=== PATIENT | female | born 1995 | race Caucasian/White ===

== ENCOUNTER 2016-09-04 01:28 | Emergency (ER) | payer OTHER ==
[~2016-09-04 01:28] MED LIST: ALEVE220 M1 PO; ALLERGY MEDICAT25 MG PO; BACTRIM DS TAB1 EACH PO; CEPHALEXIN500 M1 PO; DEPO-PROVER150 MG/M2 IM; MACRODANTIN50 M1 PO; PREDNISONE20 M1 PO; PYRIDIUM200 M2 PO; RT ALBUTEROL I6.8 GM IH; SULFAMETH/TRIME1 TA1 PO; TRIAMCINOLONE A15 GM TP; ZITHROMAX Z PA250 MG PO
[2016-09-04] MEDS ORDERED: KETOROLAC TROME10 MG PO (02:31)
== END 2016-09-04 02:45 | disposition home or self-care (01) ==
LOC: ED 01:28
DX: R07.89 Other chest pain (principal); F17.210 Nicotine dependence, cigarettes, uncomplicated
CPT/HCPCS: J1885

== ENCOUNTER 2017-07-07 09:30 | Emergency (ER) | payer SELFPAY ==
[~2017-07-07 09:30] MED LIST changes: +KETOROLAC TROME10 MG PO
[2017-07-07 10:11] LABS: EOS # 0.2 (0.04-0.40); HEMATOCRIT 38.4 % (37.0-47.0); LYMPH# 2.1 (1.50-4.00); MEAN CELL VOLUME 91 fl (78-100); MEAN CORPUSCULAR HEMOGLOBIN 31 pg (27-31); MEAN CORPUSCULAR HGB CONC 34 g/dL (33-37); MEAN PLATELET VOLUME 11.4 fl (7.4-10.4); MONO # 0.7 (0.20-0.80); NEU # 3.4 (1.40-6.50); PLATELET COUNT 173 K/mm3 (130-400); RED BLOOD COUNT 4.22 M/mm3 (4.10-5.30); RED CELL DISTRIBUTION WIDTH 14.1 % (11.5-14.5); WHITE BLOOD COUNT 6.4 K/mm3 (4.8-10.8)
[2017-07-07 10:26] LABS: URINE APPEARANCE HAZY; URINE BILIRUBIN NEGATIVE (NEGATIVE); URINE BLOOD NEGATIVE (NEGATIVE); URINE COLOR YELLOW; URINE GLUCOSE NEGATIVE (NEGATIVE); URINE KETONE NEGATIVE (NEGATIVE); URINE LEUKOCYTE ESTERASE 2+ (NEGATIVE); URINE MUCUS PRESENT (NOT PRESENT); URINE NITRATE NEGATIVE (NEGATIVE); URINE PROTEIN(semi-quant) NEGATIVE (NEGATIVE); URINE UROBILINOGEN NORMAL (NORMAL)
[2017-07-07 10:32] LABS: ALBUMIN 3.7 g/dL (3.5-5.0); BUN/CREATININE RATIO 18.2 (6.0-26.0); CALCIUM 8.9 mg/dL (8.4-10.2); POTASSIUM 3.9 mmol/L (3.6-5.0); TOTAL BILIRUBIN 0.6 mg/dL (0.2-1.3); TOTAL PROTEIN 6.7 g/dL (6.3-8.2)
[2017-07-07] MEDS ORDERED: DIFLUCAN150 M1 PO (11:18)
[2017-07-07 11:24] VITALS: BP 126/84
== END 2017-07-07 11:23 | disposition home or self-care (01) ==
LOC: ED 09:30
PROVIDERS: Physician Assistant
DX: N94.0 Mittelschmerz (principal); B37.3 Candidiasis of vulva and vagina

== ENCOUNTER 2017-09-30 10:53 | Emergency (ER) | payer SELFPAY ==
[~2017-09-30] VITALS: Ht 157.5 cm; Wt 61.4 kg
[~2017-09-30 10:53] MED LIST changes: +DIFLUCAN150 M1 PO
[2017-09-30] MEDS ORDERED: GUAIFEN-CODEIN118 ML PO (12:37)
[2017-09-30 12:54] VITALS: BP 111/70
== END 2017-09-30 12:50 | disposition home or self-care (01) ==
LOC: ED 10:53
DX: J06.9 Acute upper respiratory infection, unspecified (principal); F17.200 Nicotine dependence, unspecified, uncomplicated

== ENCOUNTER 2017-11-12 11:06 | Emergency (ER) | payer SELFPAY ==
[~2017-11-12] VITALS: Ht 157.5 cm; Wt 65.9 kg
[~2017-11-12 11:06] MED LIST changes: +GUAIFEN-CODEIN118 ML PO
[2017-11-12 12:20] VITALS: BP 149/59
== END 2017-11-12 12:22 | disposition home or self-care (01) ==
LOC: ED 11:06
DX: S06.0X0A Concussion without loss of consciousness, initial encounter (principal); F17.200 Nicotine dependence, unspecified, uncomplicated; W22.8XXA Striking against or struck by other objects, initial encounter; Z91.048 Other nonmedicinal substance allergy status

== ENCOUNTER 2018-01-11 16:08 | Emergency (ER) | payer SELFPAY ==
[~2018-01-11] VITALS: Ht 157.5 cm; Wt 65.9 kg
[2018-01-11 17:00] VITALS: BP 138/88
== END 2018-01-11 17:00 | disposition home or self-care (01) ==
LOC: ED 16:08
DX: S66.411A Strain of intrinsic muscle, fascia and tendon of right thumb at wrist and hand level, initial encounter (principal); X50.9XXA Other and unspecified overexertion or strenuous movements or postures, initial encounter; Y92.511 Restaurant or cafe as the place of occurrence of the external cause

== ENCOUNTER 2018-01-27 15:39 | Emergency (ER) | payer SELFPAY ==
[~2018-01-27] VITALS: Ht 157.5 cm; Wt 63.6 kg
[2018-01-27 16:43] VITALS: BP 126/83
[2018-01-27] MEDS ORDERED: ORPHENADRINE C100 MG PO (16:50)
== END 2018-01-27 17:03 | disposition home or self-care (01) ==
LOC: ED 15:39
DX: M62.838 Other muscle spasm (principal); M54.2 Cervicalgia; M25.511 Pain in right shoulder
CPT/HCPCS: J1885; J2360

== ENCOUNTER 2018-03-11 09:35 | Emergency (ER) | payer SELFPAY ==
[~2018-03-11] VITALS: Ht 157.5 cm; Wt 65.9 kg
[~2018-03-11 09:35] MED LIST changes: +ORPHENADRINE C100 MG PO
[2018-03-11 10:22] VITALS: BP 135/66
== END 2018-03-11 10:07 | disposition home or self-care (01) ==
LOC: ED 09:35
DX: S06.0X0A Concussion without loss of consciousness, initial encounter (principal); W22.8XXA Striking against or struck by other objects, initial encounter; Y92.009 Unspecified place in unspecified non-institutional (private) residence as the place of occurrence of the external cause; R40.2412 Glasgow coma scale score 13-15, at arrival to emergency department
CPT/HCPCS: J1885

== ENCOUNTER 2018-05-12 00:31 | Emergency (ER) | payer SELFPAY ==
[~2018-05-12] VITALS: Ht 157.5 cm; Wt 68.2 kg
[2018-05-12 00:35] VITALS: BP 150/86
[2018-05-12] MEDS ORDERED: AMOXICILLIN 50500 MG PO (01:47)
[2018-05-12] MEDS ORDERED: CYCLOBENZAPRINE10 M1 PO (01:47)
== END 2018-05-12 01:53 | disposition home or self-care (01) ==
LOC: ED 00:31
DX: M79.1 Myalgia (principal); K03.81 Cracked tooth; M26.621 Arthralgia of right temporomandibular joint; F17.200 Nicotine dependence, unspecified, uncomplicated

== ENCOUNTER 2018-05-28 09:14 | Emergency (ER) | payer SELFPAY ==
[~2018-05-28] VITALS: Ht 157.5 cm; Wt 65.9 kg
[~2018-05-28 09:14] MED LIST changes: +AMOXICILLIN 50500 MG PO; +CYCLOBENZAPRINE10 M1 PO
[2018-05-28 09:55] VITALS: BP 135/77
== END 2018-05-28 10:00 | disposition home or self-care (01) ==
LOC: ED 09:14
DX: M25.531 Pain in right wrist (principal); F17.210 Nicotine dependence, cigarettes, uncomplicated; W22.8XXA Striking against or struck by other objects, initial encounter; Y99.0 Civilian activity done for income or pay

== ENCOUNTER 2018-11-04 10:30 | Emergency (ER) | payer SELFPAY ==
[~2018-11-04] VITALS: Ht 157.5 cm; Wt 65.9 kg
[2018-11-04 11:22] LABS: EOS # 0.2 (0.04-0.40); EOS % 2.3 % (1.0-5.0); HEMATOCRIT 40.3 % (37.0-47.0); HEMOGLOBIN 13.7 g/dL (12.5-16.0); LYMPH# 2.2 (1.50-4.00); MEAN CELL VOLUME 92 fl (78-100); MEAN CORPUSCULAR HEMOGLOBIN 31 pg (27-31); MEAN CORPUSCULAR HGB CONC 34 g/dL (33-37); MEAN PLATELET VOLUME 11.1 fl (7.4-10.4); MONO # 0.8 (0.20-0.80); NEU # 3.7 (1.40-6.50); PLATELET COUNT 194 K/mm3 (130-400); RED BLOOD COUNT 4.36 M/mm3 (4.10-5.30); WHITE BLOOD COUNT 6.9 K/mm3 (4.8-10.8)
[2018-11-04 11:33] LABS: CALCIUM 9.2 mg/dL (8.4-10.2)
[2018-11-04 11:43] LABS: URINE APPEARANCE CLEAR; URINE BILIRUBIN NEGATIVE (NEGATIVE); URINE BLOOD NEGATIVE (NEGATIVE); URINE COLOR YELLOW; URINE GLUCOSE NEGATIVE (NEGATIVE); URINE KETONE NEGATIVE (NEGATIVE); URINE LEUKOCYTE ESTERASE NEGATIVE (NEGATIVE); URINE NITRATE NEGATIVE (NEGATIVE); URINE PROTEIN(semi-quant) NEGATIVE (NEGATIVE); URINE UROBILINOGEN NORMAL (NORMAL)
[2018-11-04] MEDS ORDERED: GOOD NEIGHBOR M25 M1 PO (11:50)
[2018-11-04] MEDS ORDERED: FLUTICASONE P15.8 ML NS (11:50)
[2018-11-04 12:17] VITALS: BP 123/75
== END 2018-11-04 11:59 | disposition home or self-care (01) ==
LOC: ED 10:30
PROVIDERS: Physician Assistant
DX: R42 Dizziness and giddiness (principal); F17.210 Nicotine dependence, cigarettes, uncomplicated; Z98.890 Other specified postprocedural states

== ENCOUNTER → 2019-08-02 | Outpatient (CLI) | payer BC ==
[2019-01-09 12:17] VITALS: BP 136/67
[~2019-08-02] MED LIST changes: +FLUTICASONE P15.8 ML NS; +GOOD NEIGHBOR M25 M1 PO
[2019-08-02 11:25] LABS: HEMATOCRIT 45.1 % (37.0-47.0); HEMOGLOBIN 14.7 g/dL (12.5-16.0); MEAN CELL VOLUME 93 fl (78-100); MEAN CORPUSCULAR HEMOGLOBIN 30 pg (27-31); MEAN CORPUSCULAR HGB CONC 33 g/dL (33-37); MEAN PLATELET VOLUME 10.9 fl (7.4-10.4); PLATELET COUNT 226 K/mm3 (130-400); RED BLOOD COUNT 4.85 M/mm3 (4.10-5.30); RED CELL DISTRIBUTION WIDTH 13.4 % (11.5-14.5); WHITE BLOOD COUNT 5.2 K/mm3 (4.8-10.8)
[2019-08-02 11:38] LABS: ALBUMIN 4.5 g/dL (3.5-5.0); POTASSIUM 4.1 mmol/L (3.5-5.1)
[2019-08-02 11:39] LABS: CALCIUM 9.4 mg/dL (8.3-10.5)
[2019-08-02 11:40] LABS: LYMPHOCYTE 32 % (20-51); MONOCYTE 11 % (3-10); NEUTROPHILS 54 % (42-75)
[2019-08-02 11:41] LABS: TOTAL PROTEIN 7.5 g/dL (6.4-8.3)
[2019-08-02 11:42] LABS: TOTAL BILIRUBIN 0.3 mg/dL (0.2-1.2)
[2019-08-02 12:31] LABS: ERYTHROCYTE SEDIMENTATION RATE 4 mm/hr (0-20)
[2019-08-03 14:35] LABS: ANA SCREEN with REFLEX Negative (Negative)
== END ==
LOC: LAB 11:09
PROVIDERS: Family Medicine
DX: Z00.00 Encounter for general adult medical examination without abnormal findings (principal); M06.9 Rheumatoid arthritis, unspecified; M25.511 Pain in right shoulder; M25.512 Pain in left shoulder

== ENCOUNTER → 2019-12-18 | Outpatient (CLI) | payer BC ==
[2019-01-09 12:17] VITALS: BP 136/67
== END ==
LOC: LAB 15:51
DX: N39.0 Urinary tract infection, site not specified (principal); M54.5 Low back pain

== ENCOUNTER 2020-09-24 19:45 | Emergency (ER) | payer BC ==
[2020-09-24] MEDS ORDERED: ZOLOFT 50MG50 MG PO (19:56)
[2020-09-24] MEDS ORDERED: CYCLOBENZAPRINE10 M1 PO (22:09)
[2020-09-24 22:15] VITALS: BP 121/79
== END 2020-09-24 22:15 | disposition home or self-care (01) ==
LOC: ED 19:45
DX: M26.609 Unspecified temporomandibular joint disorder, unspecified side (principal); F32.9 Major depressive disorder, single episode, unspecified; F17.210 Nicotine dependence, cigarettes, uncomplicated; Z88.8 Allergy status to other drugs, medicaments and biological substances
CPT/HCPCS: J1885

== ENCOUNTER → 2020-11-18 | Outpatient (CLI) | payer BC ==
[~2020-11-18] MED LIST changes: +ZOLOFT 50MG50 MG PO
[2020-11-18 12:10] LABS: ALBUMIN 3.9 g/dL (3.5-5.0); POTASSIUM 3.7 mmol/L (3.5-5.1)
[2020-11-18 12:11] LABS: CALCIUM 8.9 mg/dL (8.3-10.5)
[2020-11-18 12:13] LABS: TOTAL PROTEIN 6.8 g/dL (6.4-8.3)
[2020-11-18 12:15] LABS: TOTAL BILIRUBIN 0.3 mg/dL (0.2-1.2)
[2020-11-18 12:57] LABS: PH-URINE 5.5 (5.0 - 8.0); URINE APPEARANCE HAZY; URINE BILIRUBIN NEGATIVE (NEGATIVE); URINE BLOOD NEGATIVE (NEGATIVE); URINE COLOR YELLOW; URINE GLUCOSE NEGATIVE (NEGATIVE); URINE KETONE NEGATIVE (NEGATIVE); URINE LEUKOCYTE ESTERASE NEGATIVE (NEGATIVE); URINE NITRATE NEGATIVE (NEGATIVE); URINE PROTEIN(semi-quant) NEGATIVE (NEGATIVE); URINE UROBILINOGEN NORMAL (NORMAL)
[2020-11-18 12:58] LABS: URINE MUCUS PRESENT (NOT PRESENT)
== END ==
LOC: LAB 11:36
PROVIDERS: Family Medicine
DX: N91.2 Amenorrhea, unspecified (principal)

== ENCOUNTER → 2020-11-20 | Outpatient (CLI) | payer BC | LOC: RAD 10:42 | DX: O26.91 Pregnancy related conditions, unspecified, first trimester (principal); N91.2 Amenorrhea, unspecified; Z3A.01 Less than 8 weeks gestation of pregnancy ==

== ENCOUNTER → 2020-11-23 | Outpatient (CLI) | payer BC | LOC: LAB 15:11 | DX: N39.0 Urinary tract infection, site not specified (principal) ==

== ENCOUNTER → 2021-04-06 | Outpatient (CLI) | payer MEDICAID | LOC: LAB 11:28 | DX: U07.1 COVID-19 (principal) ==

== ENCOUNTER 2021-08-05 05:55 | Emergency (ER) | payer MEDICAID ==
[~2021-08-05] VITALS: Ht 157.5 cm; Wt 86.4 kg
[2021-08-05 06:16] VITALS: BP 114/59
[2021-08-05] MEDS ORDERED: PRENATE ELITE1 TA3 PO (06:22)
== END 2021-08-05 08:06 | disposition home or self-care (01) ==
LOC: ED 05:55
DX: M70.72 Other bursitis of hip, left hip (principal)
CPT/HCPCS: J1885

== ENCOUNTER → 2022-11-25 | Outpatient (CLI) | payer MEDICAID ==
[~2022-11-25] MED LIST changes: +PRENATE ELITE1 TA3 PO
== END ==
LOC: AMSURD 17:47 → RAD 17:47
DX: M79.642 Pain in left hand (principal)

== ENCOUNTER 2023-04-11 14:17 | Outpatient (RCR) | payer MEDICAID | END 2023-04-27 | disposition home or self-care (01) | LOC: PT | DX: M54.50 Low back pain, unspecified (principal) ==

== ENCOUNTER 2023-07-03 23:06 | Emergency (ER) | payer MEDICAID ==
[~2023-07-03] VITALS: Ht 157.5 cm; Wt 86.4 kg
[2023-07-03] MEDS ORDERED: TWIRLA 120-301 EACH TD (23:28)
[2023-07-03] MEDS ORDERED: CYCLOBENZAPRINE10 M1 PO (23:39)
[2023-07-03 23:57] VITALS: BP 142/87
== END 2023-07-03 23:57 | disposition home or self-care (01) ==
LOC: ED 23:06
DX: M54.2 Cervicalgia (principal); R68.84 Jaw pain
CPT/HCPCS: J1885

== ENCOUNTER → 2023-07-25 | Outpatient (CLI) | payer MEDICAID ==
[~2023-07-25] MED LIST changes: +TWIRLA 120-301 EACH TD
== END ==
LOC: RAD 08:39
DX: M41.80 Other forms of scoliosis, site unspecified (principal)

== ENCOUNTER → 2024-01-03 | Outpatient (CLI) | payer MEDICAID ==
[2024-01-04 16:05] LABS: URINE APPEARANCE CLOUDY (CLEAR); URINE COLOR YELLOW (YELLOW)
[2024-01-04 16:06] LABS: PH-URINE 5.5 (5.0 - 8.0); URINE BILIRUBIN 1+ (NEGATIVE); URINE GLUCOSE NEGATIVE (NEGATIVE); URINE KETONE NEGATIVE (NEGATIVE); URINE NITRATE NEGATIVE (NEGATIVE); URINE PROTEIN(semi-quant) NEGATIVE (NEGATIVE)
[2024-01-04 16:07] LABS: URINE BLOOD TRACE-LYSED (NEGATIVE); URINE LEUKOCYTE ESTERASE NEGATIVE (NEGATIVE)
[2024-01-04 16:08] LABS: URINE MUCUS PRESENT (NOT PRESENT)
[2024-01-05 14:19] LABS: CLUE CELLS PRESENT (Not Observd)
== END ==
LOC: LAB 01:00
PROVIDERS: Nurse Practitioner Family
DX: N89.8 Other specified noninflammatory disorders of vagina (principal)
CPT/HCPCS: Q0111

== ENCOUNTER → 2024-05-15 | Outpatient (CLI) | payer MEDICAID ==
[2024-05-15 09:14] LABS: BASO # 0.02 K/mm3 (0.02-0.10); EOS # 0.22 K/mm3 (0.04-0.40); EOS % 2.6 % (1.0-5.0); HEMATOCRIT 43.2 % (37.0-47.0); LYMPH# 1.91 K/mm3 (1.50-4.00); MEAN CELL VOLUME 93 fl (78-100); MEAN CORPUSCULAR HEMOGLOBIN 30 pg (27-31); MEAN CORPUSCULAR HGB CONC 32 g/dL (33-37); MEAN PLATELET VOLUME 10.5 fl (7.4-10.4); MONO # 0.58 K/mm3 (0.20-0.80); NEU # 5.71 K/mm3 (1.40-6.50); PLATELET COUNT 270 K/mm3 (130-400); RED BLOOD COUNT 4.65 M/mm3 (4.10-5.30); RED CELL DISTRIBUTION WIDTH 13.6 % (11.5-14.5); WHITE BLOOD COUNT 8.4 K/mm3 (4.8-10.8)
[2024-05-20 05:37] LABS: ASPERGILLUS FUMIGATUS AL COUNT <0.10 kU/L (Class 0); BAKERS YEAST ALLERGEN COUNT <0.10 kU/L (Class 0); BERMUDA GRASS ALLERGEN COUNT <0.10 kU/L (Class 0); BOX ELDER-MAPLE ALLERGEN COUNT <0.10 kU/L (Class 0); CAT DANDER ALLERGEN COUNT <0.10 kU/L (Class 0); CLADOSPORIUM ALLERGEN COUNT <0.10 kU/L (Class 0); COCKROACH ALLERGEN COUNT <0.10 kU/L (Class 0); CORN ALLERGEN COUNT <0.10 kU/L (Class 0); COTTONWOOD TREE ALLERGEN COUNT <0.10 kU/L (Class 0); DOG DANDER ALLERGEN COUNT <0.10 kU/L (Class 0); DUST MITES (D.F.) ALLERG COUNT <0.10 kU/L (Class 0); DUST MITES (D.P.) ALLERG COUNT <0.10 kU/L (Class 0); EGG WHITE ALLERGEN COUNT <0.10 kU/L (Class 0); ELM TREE ALLERGEN COUNT <0.10 kU/L (Class 0); FIREBUSH ALLERGEN COUNT <0.10 kU/L (Class 0); MILK ALLERGEN COUNT <0.10 kU/L (Class 0); OAK ALLERGEN COUNT <0.10 kU/L (Class 0); ORANGE ALLERGEN COUNT <0.10 kU/L (Class 0); PEANUT ALLERGEN COUNT <0.10 kU/L (Class 0); RICE ALLERGEN COUNT <0.10 kU/L (Class 0); ROUGH MARSH ELDER ALLERG COUNT <0.10 kU/L (Class 0); RUSSIAN THISTLE ALLERGEN COUNT <0.10 kU/L (Class 0); SHORT RAGWEED ALLERGEN COUNT <0.10 kU/L (Class 0); SOYBEAN ALLERGEN COUNT <0.10 kU/L (Class 0); STRAWBERRY ALLERGEN COUNT <0.10 kU/L (Class 0); TOMATO ALLERGEN COUNT <0.10 kU/L (Class 0); WHEAT ALLERGEN COUNT <0.10 kU/L (Class 0)
== END ==
LOC: LAB 09:01
PROVIDERS: Family Medicine
DX: J30.2 Other seasonal allergic rhinitis (principal)

== ENCOUNTER → 2024-10-08 | Outpatient (CLI) | payer BC | LOC: LAB 07:30 | DX: J06.9 Acute upper respiratory infection, unspecified (principal) ==